=== PATIENT | female | born 1955 | race Caucasian/White ===

== ENCOUNTER 2018-05-02 13:47 | Outpatient (CLI) | payer OTHER ==
--- NOTE | 2018-05-02 16:13 | BD ---
BONE MINERAL DENSITY EVALUATION: 05/02/18 HISTORY: Age related osteoporosis. Bone mineral density evaluation of the lumbar spine and left hip is performed using hologic bone mine ral density unit. Lumbar Spine: BMD (g/cm2) T-Score Z-Score: L1 1.00 0.2 1.5 L2 1.04 0.1 1.6 L3 1.10 0.1 1.7 L4 1.07 0.1 1.7 L1-L4 1,06 0.1 1.6 Findings compatible with normal bone mineral density. LEFT HIP: Femoral Neck: 0.72 -1.2 0.2 Total Femur: 0.92 -0.2 0.8 Findings compatible with osteopenia. The patient has the following FRAX score risk: Ten year fracture risk is as follows: Major osteoporotic fractures 9.8%. Hip fracture risk of 0.8%. Impression: Normal bone mineral density. The patient does not have significant increased risk of osteoporotic fr actures. POS: [facility]
== END 2018-05-02 13:48 | disposition home or self-care (01) ==
LOC: BICMAMMO 13:47
PROVIDERS: ATTEND Obstetrics & Gynecology
DX: Z12.31 Encounter for screening mammogram for malignant neoplasm of breast (principal); Z01.419 Encounter for gynecological examination (general) (routine) without abnormal findings; Z80.3 Family history of malignant neoplasm of breast
CPT/HCPCS: 77063; 77067; 77080

== ENCOUNTER 2019-09-24 10:16 | Outpatient (CLI) | payer OTHER ==
--- NOTE | 2019-09-24 11:42 | MMO ---
Bilateral MAMMO Bilat Screen [facility]. CLINICAL HISTORY: Patient is 64 years old and is seen for screening. VIEWS: The views performed were: . FILMS COMPARED: The present examination has been compared to a prior imaging study performed at [facility] on 05/02/2018. This study has been interpreted with the assistance of computer-aided detection. MAMMOGRAM FINDINGS: There are scattered fibroglandular densities. There are no suspicious masses, suspicious calcifications, or new areas of architectural distortion. IMPRESSION: THERE IS NO MAMMOGRAPHIC EVIDENCE OF MALIGNANCY. A ROUTINE FOLLOW-UP MAMMOGRAM IN 1 YEAR IS RECOMMENDED. THE RESULTS OF THIS EXAM WERE SENT TO THE PATIENT. ACR BI-RADS Category 1 - Negative MAMMOGRAPHY NOTE: 1. A negative mammogram report should not delay a biopsy if a dominant of clinically suspicious mass is present. 2. Approximately 10% to 15% of breast cancers are not detected by mammography. 3. Adenosis and dense breasts may obscure an underlying neoplasm. Reported by: CHUCK HUNTLEY MD Electonically Signed: [id number]
--- NOTE | 2019-09-24 12:13 | BD ---
DEXA BONE DENSITY STUDY: HISTORY: Postmenopausal. FINDINGS: Lumbar Spine: BMD (g/cm2) L1 0.960 T-Score: -0.3 L2 0.993 T-Score: -0.3 L3 1.035 T-Score: -0.4 L4 1.082 T-Score: +0.2 L1-L4 1.021 T-Score: -0.2 Femoral Neck: 0.643 T-Score: -1.9 Total Femur: 0.887 T-Score: -0.5 Impression: Osteopenia of the left femoral neck and normal bone mineral density of the lumbar spine. POS: [facility]
== END 2019-09-24 10:17 | disposition home or self-care (01) ==
LOC: BICMAMMO 10:16
PROVIDERS: ATTEND Family Medicine
DX: Z12.31 Encounter for screening mammogram for malignant neoplasm of breast (principal); M81.0 Age-related osteoporosis without current pathological fracture; M85.852 Other specified disorders of bone density and structure, left thigh
CPT/HCPCS: 77063; 77067; 77080